=== PATIENT | female | born 1935 | race African-American/Black ===

== ENCOUNTER 2016-09-12 05:20 | Day surgery (SDC) | payer OTHER ==
[2016-09-12] MEDS ORDERED: NS 1,000 ML ONE (05:41)
[2016-09-12] MEDS ORDERED: MYLICON DROPS (DOSE) MISC ONE (07:23)
[2016-09-12] MEDS ORDERED: LR 1,000 ML ONE (08:49)
[2016-09-12] MEDS ORDERED: FENTANYL ONE (08:58)
[2016-09-12] MEDS ORDERED: DIPRIVAN 1% ONE (08:59)
[2016-09-12] MEDS ORDERED: XYLOCAINE-MPF 2% ONE (09:27)
[2016-09-12] MEDS ORDERED: ROBINUL ONE (09:27)
[2016-09-12] MEDS ORDERED: EPHEDRINE ONE (09:27)
[2016-09-12 09:53] VITALS: BP 153/71
--- NOTE | 2016-09-18 04:02 | OPERATIVE NOTE ---
PROCEDURE DATE: 09/12/2016 REFERRING PHYSICIAN: Beth Weiss MD INDICATIONS FOR PROCEDURE: 1. Dysphagia. 2. Nausea with vomiting. 3. Unplanned weight loss. PROCEDURE PERFORMED: Esophagogastroduodenoscopy with biopsy. CONSENT: Informed consent was obtained from the patient and her daughter prior to the procedure. The risks, benefits, and alternatives were discussed. MEDICATIONS: The patient received monitored anesthesia care. PERFORMING PHYSICIAN: Bonnie Parmar MD. ASSISTANTS: 1. ST Jose. 2. Bola Ivan RN. 3. Aubrey Griffiths CRNA. 4. Aubrey Edwards MD (Anesthesia). COMPLICATIONS: There were no complications. ESTIMATED BLOOD LOSS: Less than 1 mL. SPECIMENS REMOVED: 1. Duodenal biopsy. 2. Gastric biopsy. FINDINGS: After sedation was achieved, the upper endoscope was inserted to the 2nd portion of the duodenum. The hypopharynx and tubular esophagus appeared normal. The GE junction was at 40 cm. There was greater than 200 mL of retained bilious secretions in the stomach. There was severe erosive gastritis in the antrum, fundus, and body. There were nodular polyps that remain in place, as they were less than 1 cm. The pylorus was inflamed, but patent. There was severe duodenitis in the bulb and the 2nd portion of the duodenum. Biopsies were taken from the duodenal and gastric mucosa. The free standing fluid was aspirated and the lumen was decompressed. The scope was removed without incident. IMPRESSION: 1. Gastric stasis. 2. Severe erosive gastritis. 3. Gastric polyps. 4. Duodenitis. RECOMMENDATIONS: 1. Await gastric biopsy results. 2. Will order a dedicated gastric emptying study to confirm the diagnosis of gastroparesis. 3. Begin Prilosec 40 mg one p.o. daily. 4. We will proceed with colonoscopy as previously scheduled.
--- NOTE | 2016-09-18 04:09 | OPERATIVE NOTE ---
PROCEDURE DATE: 09/12/2016 REFERRING PHYSICIAN: Beth Weiss MD. INDICATION FOR PROCEDURE: 1. Nausea with vomiting. 2. Unplanned weight loss. PROCEDURE PERFORMED: 1. Colonoscopy with polypectomy. 2. Colonoscopy with biopsy. CONSENT: Informed consent was obtained from the patient and her daughter prior to the procedure. The risks, benefits, and alternatives were discussed. MEDICATIONS: The patient received monitored anesthesia care. PERFORMING PHYSICIAN: Bonnie Parmar MD. ASSISTANTS: 1. ST. Jose 2. Bola Ivan RN. 3. Aubrey Griffiths CRNA. 4. Haja Edwards MD (anesthesia). COMPLICATIONS: There were no complications. ESTIMATED BLOOD LOSS: Less than 1 mL. SPECIMENS REMOVED: 1. Cecal polyps x3. 2. Ascending colon polyp x1. 3. Random colon biopsies. 4. Transverse colon polyp x1. 5. Polyps at 50 cm x 2. 6. Polyps at 40 cm x1. CECAL INTUBATION TIME: 15 minutes. WITHDRAWAL TIME: 41 minutes. PREP QUALITY: Fair to poor. FINDINGS: After the EGD was performed, the pediatric colonoscope was inserted to the cecum. The appendiceal orifice and cecal base appeared normal except for the presence of 3 polyps that ranged in size from 5-15 mm. The polyps were removed by snare cautery. The terminal ileum was not intubated due to the amount of fecal residue that was present. Upon withdrawal, there was an ascending colon polyp that was 5-10 mm in size that was removed by snare cautery. The remaining ascending colon mucosa appeared endoscopically normal. Upon further withdrawal into the transverse colon, there was a 5-10 mm, sessile polyp removed by snare cautery. The splenic flexure appeared grossly normal. In the descending colon at 50 cm, there were 2 polyps that ranged in size from 5-15 mm that were removed by snare cautery at 50 cm. At 40 cm, there was a single polyp that ranged in size from 5-10 mm that was removed by snare cautery. At 30 cm, there was a less than 5 mm polyp that was not removed due to the amount of fecal residue. Throughout the entire colon, there was evidence of diverticulosis but no evidence of diverticulitis. In the upper rectum, there were grade 1 internal hemorrhoids. On retroflexed view, there were large external hemorrhoids. It should be noted that on digital exam and on retroflexed view of the scope, there was decreased sphincter tone. The colonoscope prolapsed through the rectum on retroflexed view. The scope was reinserted and the lumen was decompressed. The scope was removed without incident. IMPRESSION: 1. Multiple colon polyps. 2. Boyce-diverticulosis. 3. Internal hemorrhoids. 4. External hemorrhoids. 5. Decreased sphincter tone. RECOMMENDATION: 1. Await biopsy results. 2. The exam findings today, although abnormal, they do not account for the patient's ongoing weight loss. Therefore, I will schedule the patient for a CT scan of the abdomen and pelvis. She should also have a mammogram and a RN ACUTE DIALYSIS evaluation if not already done. 3. Given the patient's age, I would only recommend a colonoscopy in 3 years if clinically appropriate. After age 84, it may not be clinically indicated to pursue recurrent endoscopies. 4. We will have the patient return to clinic in 4 weeks to assess interval progress.
== END 2016-09-12 09:58 | disposition home or self-care (01) ==
LOC: ENDO 05:20
PROVIDERS: ATTEND Internal Medicine Gastroenterology
DX: K31.84 Gastroparesis (principal); K29.00 Acute gastritis without bleeding; K31.7 Polyp of stomach and duodenum; K29.80 Duodenitis without bleeding; D12.0 Benign neoplasm of cecum; D12.2 Benign neoplasm of ascending colon; D12.3 Benign neoplasm of transverse colon; K63.5 Polyp of colon; E11.9 Type 2 diabetes mellitus without complications; E78.00 Pure hypercholesterolemia, unspecified; I10 Essential (primary) hypertension; M81.0 Age-related osteoporosis without current pathological fracture; Z87.891 Personal history of nicotine dependence; Z23 Encounter for immunization
CPT/HCPCS: 82948; 88305; 88312; 88313; J3010; J7030; J7120

== ENCOUNTER 2019-06-10 16:59 | Inpatient (IN) ==
[2019-06-10 17:55] LABS: BASO# 0.05 X1000 (0.0-0.2); BASO% 0.6 % (0.0-0.8); EOS# 0.37 X1000 (0.0-0.7); EOS% 4.2 % (0.0-10.0); HEMATOCRIT 41.7 % (37.0-47.0); HEMOGLOBIN 13.2 g/dL (12.0-16.0); IMM GRAN# 0.02 X1000 (0.0-0.04); IMM GRAN% 0.2 % (0.0-0.5); LYMPH# 2.25 X1000 (1.2-3.4); LYMPH% 25.8 % (20.5-51.1); MCH 28.6 PG (27-31); MCHC 31.7 g/dL (33-37); MCV 90.5 FL (81-99); MONO# 0.72 X1000 (0.11-0.59); MONO% 8.3 % (1.7-9.3); MPV 11.1 FL (7.4-10.4); NEUT# 5.31 X1000 (1.4-6.5); NEUT% 60.9 % (42.2-75.2); PLT 232 X1000 (130-400); RBC 4.61 XMIL (4.2-5.4); RDW 13.1 % (11.5-14.5); WBC 8.72 X1000 (4.8-10.8)
[2019-06-10 18:20] LABS: ALBUMIN 4.8 g/dL (3.5-5.0); POTASSIUM 4.2 mmol/L (3.5-5.1); TOTAL BILIRUBIN 0.4 mg/dL (0.20-1.00); TOTAL PROTEIN 7.8 g/dL (6.3-8.3)
--- NOTE | 2019-06-10 18:49 | PROVIDER DOCUMENTATION ---
HPI-General Adult - General Chief Complaint: Abnormal Lab[s] Stated Complaint: ABNORMAL LABS Time Seen by Provider: 06/10/19 17:36 Source: patient Unable to obtain history due to:: urgency Allergies/Adverse Reactions: Patient Allergies Allergy/AdvReac Type Severity Reaction Status Date / Time No Known Allergies Allergy Verified 12/19/17 13:13 Home Medications: Home Medication List Medication Instructions Recorded Confirmed Last Taken Type Diltiazem HCl [Diltiazem 24Hr ER 360 mg PO DAILY 10/19/13 06/10/19 12/24/17 07:00 History (Cd)] 360 Lovastatin 20 mg PO HS 10/19/13 06/10/19 12/24/17 21:00 History 20 Metformin [Glucophage] 1,000 mg PO BID CC 10/19/13 06/10/19 12/25/17 07:00 History 1000 Sitagliptin Phosphate [Januvia] 100 mg PO DAILY 10/19/13 06/10/19 12/25/17 07:00 History 100 Lisinopril/Hydrochlorothiazide 1 each PO DAILY #30 tablet 08/16/15 06/10/19 12/24/17 07:00 Rx [Lisinopril-Hctz 20-25 mg Tab] 1 - History of Present Illness -Gen Adult Nature of Presenting Problems: patient was sent to ER because outpatient test result showed high potassium, patient was otherwise asymptomatic, denied taking any supplement Location of Pain/Injury: reports: none Pain Radiation: reports: no radiation Quality of Pain: reports: none Severity: reports: moderate Onset/Duration: reports: unsure Context/Activities at Onset: reports: none Modifying Factors: improves with: nothing Associated Symptoms: reports: denies symptoms Similar Symptoms Previously?: No Recently seen or treated by another doctor?: Yes Review of Systems - Adult - REVIEW OF SYSTEMS - ADULT Constitutional: reports: no symptoms reported. denies: fever, fatique Eyes: reports: no symptoms reported Ears, Nose, Mouth & Throat: reports: no symptoms reported Cardiovascular: reports: no symptoms reported Respiratory: reports: no symptoms reported Gastrointestinal: reports: no symptoms reported Genitourinary: reports: no symptoms reported Musculoskeletal: reports: no symptoms reported Integumentary: reports: no symptoms reported Neurological: reports: no symptoms reported Psychiatric: reports: no symptoms reported Endocrine: reports: no symptoms reported Hematologic/Lymphatic: reports: no symptoms reported Allergic/Immunologic: reports: no symptoms reported Past History - Adult - PAST MEDICAL HISTORY-ADULT Review of Records: reports: Nursing Assessment Review Major Childhood Illnesses: reports: denies history Cardiovascular: reports: HTN, hyperlipidemia Respiratory: reports: denies history Gastrointestinal: reports: GERD Obstetrical/Gynecological: reports: denies history Genitourinary: reports: denies history Musculoskeletal: reports: arthritis Neurological: reports: denies history Endocrine/Immune: reports: Diabetes, thyroid disorder Other Conditions: reports: denies history - PRIOR SURGERIES/PROCEDURES Surgical/Procedure History: reports: hysterectomy, other (thyroidectomy) - IMMUNIZATION STATUS Childhood Immunizations: See Nurse Assessment Flu Vaccine: See Nurse Assessment - FAMILY HISTORY Family History: reviewed, not pertinent Physical Exam-General - PHYSICAL EXAM-ADULT Initial Vital Signs Reviewed: Yes - CONSTITUTIONAL General Appearance: alert, no apparent distress - EYES Eyes: PERRL/EOMI - HEAD, EARS, NOSE, MOUTH & THROAT HENMT: normocephalic/atraumatic, moist mucous membranes - NECK Neck: non-tender, supple - RESPIRATORY Respiratory: lungs clear, normal breath sounds - CARDIOVASCULAR Cardiovascular: regular rate, rhythm, no edema, no gallop, no JVD - GASTROINTESTINAL (ABDOMEN) Abdominal Exam: non tender, soft - LYMPHATIC Lymphatic: no adenopathy - MUSCULOSKELETAL Back Exam: no CVA tenderness, no vertebral tenderness - SKIN Integumentary: normal color, warm/dry - NEUROLOGIC Neurologic: grossly normal, no motor/sensory deficits - PSYCHIATRIC Psych/Mental Status: normal mood/affect Progress - PLAN OF CARE/RESULTS Progress/Plan/Lab Results: Vital Signs - 8 hr 06/10/19 17:10 06/10/19 18:20 Temperature 98.5 F Pulse Rate 83 90 Respiratory Rate 20 20 Blood Pressure 212/107 169/102 O2 Sat by Pulse Oximetry 97 96 Laboratory Results - last 24 hr 06/10/19 06/10/19 17:40 17:40 WBC 8.72 RBC 4.61 Hgb 13.2 Hct 41.7 MCV 90.5 MCH 28.6 MCHC 31.7 L RDW Std Deviation 13.1 Plt Count 232 MPV 11.1 H Immature Gran % (Auto) 0.2 Neut % (Auto) 60.9 Lymph % (Auto) 25.8 Schuyler % (Auto) 8.3 Eos % (Auto) 4.2 Baso % (Auto) 0.6 Immature Gran # (Auto) 0.02 Neut # (Auto) 5.31 Lymph # (Auto) 2.25 Schuyler # (Auto) 0.72 H Eos # (Auto) 0.37 Baso # (Auto) 0.05 Sodium 141 Potassium 4.2 Chloride 105 Carbon Dioxide 23 L Anion Gap 13 BUN 23 H Creatinine 1.0 H Estimated GFR/1.73 m2 53 BUN/Creatinine Ratio 23 Glucose 169 H Calculated Osmolality 289 Calcium 12.0 H Total Bilirubin 0.40 AST 20 ALT 9 L Alkaline Phosphatase 85 Total Protein 7.8 Albumin 4.8 Globulin 3.0 Albumin/Globulin Ratio 2.0 Orders Category Date Time Status CBC WITH DIFF [HEME] Stat Lab 06/10/19 17:40 Completed COMPREHENSIVE METABOLIC PANEL [CHEM] Stat Lab 06/10/19 17:40 Completed Result Diagrams: 06/12/19 05:30 06/12/19 05:30 Departure - Departure Date of Disposition Decision: 06/10/19 Time of Disposition Decision: 18:49 DIAGNOSIS: Hypercalcemia Disposition: ADMITTED INPATIENT 09 Certified Medical Emergency: Emergent Condition: Stable - Critical Care Note This patient required my direct & personal management of CC.: No Attestation - Physician/ FIOR Attestation Patient care was provided by Advanced Practice Provider:: No The physician spent face to face time with patient:: Yes Advanced Practice Provider documentation review:: Supervising physician onsite and consulted in the evaluation and care of this patient. The physician did have a face to face encounter with the patient.
[2019-06-10] MEDS ORDERED: NS 1,000 ML IV ONE (18:58)
[2019-06-10] MEDS ORDERED: AREDIA 90 MG in NS 1,000 ML IV ONE (19:00)
[2019-06-10] MEDS ORDERED: NS 1,000 ML IV SCH (19:00)
[2019-06-10] MEDS: MIACALCIN SUBQ SCH (20:19)
[2019-06-10] MEDS: MEVACOR PO SCH (21:55)
[2019-06-10 22:53] LABS: BILIRUBIN URINE NEGATIVE (NEGATIVE); BLOOD URINE NEGATIVE (NEGATIVE); CLARITY CLEAR (CLEAR); KETONE URINE NEGATIVE (NEGATIVE); LEUKOCYTES URINE NEGATIVE (NEGATIVE); NITRITE URINE NEGATIVE (NEGATIVE); PH URINE 6.5; PROTEIN URINE NEGATIVE (NEGATIVE); UROBILINOGEN URINE NORMAL
[2019-06-10 23:15] LABS: URINE BACTERIA 1+ /HFP; URINE EPITHELIAL CELLS <10 /HPF (<10)
[2019-06-10 23:16] LABS: COLOR STRAW; URINE RBC <10 /HPF (<10); URINE SOURCE CLEAN CATCH; URINE WBC <10 /HPF (<10)
[2019-06-11] MEDS: NS 1,000 ML IV SCH ×2 (01:52→14:07)
[2019-06-11 06:36] LABS: AGAP 9; ALBUMIN 3.8 g/dL (3.5-5.0); BUN 15 mg/dL (8-22); CALCIUM 10.4 mg/dL (8.8-10.2); CHLORIDE 110 mmol/L (98-107); COSMO 284; CREATININE 0.8 mg/dL (0.5-0.9); ESTIMATED GFR > 60; GLUCOSE 166 mg/dL (70-104); PHOSPHORUS 2.3 mg/dL (2.7-4.5); POTASSIUM 3.8 mmol/L (3.5-5.1); SODIUM 140 mmol/L (136-145); TCO2 22 mmol/L (25-35)
[2019-06-11] MEDS: MIACALCIN SUBQ SCH (06:53)
--- NOTE | 2019-06-11 08:45 | Diag Imaging Result Doc PS360 ---
EXAM: SKELETAL SURVEY (ADULT) HISTORY: r/o multiple myeloma TECHNIQUE: Skeletal survey protocol. COMPARISON: None. FINDINGS: Single view chest: There is cardiomegaly. Mildly prominent interstitial markings. Degenerative changes about the shoulders. No identifiable bony lesions. Thoracic spine two views: There is a scoliosis and degenerative arthropathy. No compression fractures. Lumbar spine two views: There is a rotoscoliosis and degenerative arthropathy. There is osteopenia. No compression fractures. Cervical spine two views: There is degenerative arthropathy. There is carotid artery calcification. No compression fracture. No subluxation. Skull single view: No lytic or blastic lesions are appreciated. Single view pelvis: No lytic nor blastic lesions are appreciated. Pelvic calcification is most consistent with a uterine fibroid. Mild diffuse degenerative changes are noted. Single view abdomen: Cholecystectomy clips. Nonobstructive bowel gas pattern. Bilateral femurs single views: Mild nonspecific, symmetrical medullary lucencies bilateral proximal diaphyses probably represent patchy osteopenia. No discrete focal or punched out lytic lesions are identified. 1.6 cm calcification projects over the mid distal left femur. Bilateral tib-fib single views: Mild degenerative change. No lytic or blastic lesions. Bilateral humeri: No discrete punched out lytic or blastic lesions. Moderate degenerative arthropathy bilateral shoulders. Bilateral forearms single views: No focal lytic or blastic lesion. IMPRESSION: 1.No focal lytic or blastic lesions are identified. 2.Marked degenerative arthropathy and scoliosis of the cervical, thoracic, and lumbar spine. Electronically signed by Мария Langston 06/11/2019 8:42 AM
[2019-06-11] MEDS: JANUVIA PO SCH (10:12)
[2019-06-11] MEDS: PRINIVIL PO SCH (10:12)
[2019-06-11] MEDS: CARDIZEM CD PO SCH (10:12)
[2019-06-11] MEDS: HYDROCHLOROTHIAZIDE PO SCH (10:12)
[2019-06-11] MEDS ORDERED: ZOFRAN IV PRN (10:42)
[2019-06-11] MEDS ORDERED: TYLENOL PO PRN (10:42)
--- NOTE | 2019-06-11 15:49 | Diag Imaging Result Doc PS360 ---
EXAM: US SOFT TISSUE HEAD/NECK HISTORY: parathyroid ultrasound; >Ca >PTH TECHNIQUE: Thyroid ultrasound COMPARISON: None. FINDINGS: The right lobe of the thyroid measures 3.8 x 1.3 x 1.8 cm. The left lobe of the thyroid measures 4.4 x 1.3 x 1.4 cm. There is a 9 mm hypoechoic nodule inferiorly in the right lobe. Tiny cyst superiorly in the right lung. There is a 1.7 cm hypoechoic nodule with in or adjacent to the posterior left mid lobe. Adjacent to this is a 6 mm cyst in the lower left lobe. IMPRESSION: 1.7 cm left-sided nodule within or adjacent to the mid left lobe Electronically signed by Juan Jose Fallon 06/11/2019 3:46 PM
--- NOTE | 2019-06-11 20:19 | HISTORY AND PHYSICAL ---
PRIMARY CARE PROVIDER: Beth Weiss MD. CHIEF COMPLAINT: Came in because her doctor told her that her calcium was high. HISTORY OF PRESENT ILLNESS: Ms. Yvonne Parmar is an 84-year-old female, with a medical history of osteoporosis, diabetes, hypertension, hyperlipidemia, who states that she went to her primary care provider on the , this past Sunday, for a doctor's appointment, routine check. They called her yesterday and told her to go to the emergency department because her calcium levels were too high. Otherwise, she only complains of having some weight loss and more or less that her "right hip is gone", is what she keeps saying. She just cannot really walk straight or provide a lot of pressure on it, but otherwise no other complaints. She had some lab work which revealed that her calcium level was indeed elevated at 12. She also had elevation in her PTH which is 107, and a decrease in her phosphorus which is 2.3. All 3 of these are consistent with hyperparathyroidism. Now, she does admit to having some sort of possible thyroid surgery or parathyroid surgery. She is really unclear, and we cannot really find any old records on it, so we are going to get an ultrasound of her thyroid and parathyroid. PAST MEDICAL HISTORY: 1. Diabetes mellitus type 2. 2. Hypertension. 3. Hyperlipidemia. 4. Osteoporosis. She gets shots for that, some sort of medication shot. 5. History of gastritis and duodenitis. 6. History of bladder prolapse with sling. SURGICAL HISTORY: 1. Hysterectomy. 2. Some sort of thyroid or parathyroid surgery in 2001. She is not on any medications for replacement, and she is really unclear what kind of surgery it was, or why she even had the surgery. 3. Umbilical hernia repair with lysis of adhesions. 4. Cholecystectomy. 5. EGD with biopsy and colonoscopy in 2017. 6. Bladder sling, secondary to bladder prolapse in 2018. SOCIAL HISTORY: She quit smoking in the 1980s, but she had started when she was in her teens and she said it was at least less than a half pack per day, or even less than that. Denies alcohol or illicit drug use. She lives at home alone. FAMILY HISTORY: She does not know of any medical conditions in her mother, and her father had diabetes. ALLERGIES: No known drug allergies. HOME MEDICATIONS: 1. Diltiazem 360 mg p.o. daily. 2. Metformin 1000 mg p.o. twice daily. 3. Januvia 100 mg p.o. daily. 4. Lovastatin 20 mg p.o. nightly. 5. Lisinopril/hydrochlorothiazide 1 tablet p.o. daily. REVIEW OF SYSTEMS: A 14 point review of systems is complete and all are negative except those mentioned above in HPI. PHYSICAL EXAMINATION: VITAL SIGNS: Temperature 98.2 degrees, heart rate 55, respiratory rate 16, blood pressure 139/66, O2 saturation 97% on room air. GENERAL: Ms. Yvonne Parmar is an 84-year-old female. She is in no acute distress. She is able to answer questions appropriately. HEENT: Atraumatic, normocephalic. Pupils equal, round, and reactive to light. Extraocular movements intact. Mucous membranes are moist. NECK: Trachea midline. CARDIOVASCULAR: S1, S2. Regular rate and rhythm. No rubs, gallops, murmurs. No lower extremity edema. +2 dorsalis and radial pulses. Negative JVD or carotid bruits. PULMONARY: Clear to auscultate with bilateral breath sounds. No accessory muscle use or work of breathing noted. GI: Soft, nontender, nondistended. Positive bowel sounds x4. EXTREMITIES: Decreased range of motion. Strength equal in all extremities. NEUROLOGIC: Alert and oriented x3. Follows commands. Sensory is intact. SKIN: Warm, dry, intact. LABORATORY DATA: Blood cells 8000, hemoglobin 13, hematocrit 41, platelet count 232,000. Sodium 140, potassium 3.8, BUN 15, creatinine 0.8, glucose 166. Calcium on admit was 12 and now down to 10.4. Phosphorus is 2.3. PTH is 107. Bilirubin 0.40, AST 20, ALT 9, albumin 3.8. Urinalysis negative. It did have some trace glucose in it. IMAGING: Looks like a skeletal survey to rule out multiple myeloma. On the skeletal survey of the single-view chest, there is cardiomegaly, mildly prominent interstitial markings, degenerative changes around the shoulders, but no lesions. The thoracic spine 2 views showed scoliosis and degenerative arthropathy. No fractures. Lumbar spine 2 views showed a rotoscoliosis and degenerative arthropathy. There is osteopenia, but no fractures. Cervical spine 2 views showed degenerative arthropathy. There was some carotid artery calcification, but no fractures or subluxation. The skull single view showed no lytic or blastic lesions. The single view pelvis showed no lytic or blastic lesion. There is a pelvic calcification that is consistent with uterine fibroid and mild diffuse degenerative changes. The single-view abdomen: There are cholecystectomy clips, but nonobstructive bowel gas pattern. The bilateral femora single-view showed osteopenia, and then there was a 1.6 cm calcification over the mid distal left femur. Bilateral tib-fib single views showed degenerative changes. No lesions in the bilateral humeri. No lytic or blastic lesions. It did show moderate degenerative arthropathy. The bilateral forearm single-view showed no lytic lesions. ASSESSMENT AND PLAN: 1. Hyperparathyroidism, likely primary. We are getting an ultrasound of the parathyroid and thyroid as well, but her calcium level and PTH level are both high. The phosphorus level is low. She received pamidronate 90 mg intravenously, and that got her calcium level back down. 2. Hypertension. Continue with hydrochlorothiazide/lisinopril. 3. Diabetes mellitus type 2. Continue Januvia. 4. Hyperlipidemia. Continue lovastatin. 5. Dehydration. Continue with normal saline fluid. 6. Osteoporosis. She actually takes a medication that she takes shots for. It affects her right hip more which is where she has most of her issues, as far as bearing weight. Not sure what the name of the medication is. Dictated by ALEXANDRU Lui for Chago House MD Addendum: Patient seen and examined by myself. Agree with ALEXANDRU note. It reflects my assessment and plan. Patient is being admitted to hospital for hypercalcemia that is not symptomatic. Will start IV fluids, will provide Pamidronate and myacalcin and will order PTH, SPEP and will follow results. cc: ALEXANDRU Lui MD [facility]OSPITALGalina
[2019-06-11] MEDS: MEVACOR PO SCH (20:29)
[2019-06-12] MEDS: NS 1,000 ML IV SCH ×3 (03:31→09:13)
[2019-06-12] MEDS ORDERED: TYLENOL PO PRN (06:30)
[2019-06-12 07:32] LABS: AGAP 12; ALBUMIN 3.5 g/dL (3.5-5.0); ALKALINE PHOSPHATASE 59 U/L (32-104); BUN 18 mg/dL (8-22); CALCIUM 10.2 mg/dL (8.8-10.2); CHLORIDE 112 mmol/L (98-107); COSMO 288; CREATININE 0.9 mg/dL (0.5-0.9); GLUCOSE 180 mg/dL (70-104); GOT 19 U/L (10-30); POTASSIUM 4.1 mmol/L (3.5-5.1); SODIUM 141 mmol/L (136-145); TCO2 18 mmol/L (25-35); TOTAL PROTEIN 6.5 g/dL (6.3-8.3)
[2019-06-12 07:33] LABS: GPT 8 U/L (10-36); MAGNESIUM 1.8 mg/dL (1.5-2.7); PHOSPHORUS 2.2 mg/dL (2.7-4.5)
[2019-06-12 07:36] VITALS: BP 157/67
[2019-06-12 08:03] LABS: HEMATOCRIT 38.6 % (37.0-47.0); HEMOGLOBIN 11.7 g/dL (12.0-16.0); MCH 29.4 PG (27-31); MCHC 30.3 g/dL (33-37); PLT 191 X1000 (130-400); RBC 3.98 XMIL (4.2-5.4); RDW 13.4 % (11.5-14.5); WBC 10.17 X1000 (4.8-10.8)
[2019-06-12 08:05] LABS: EOS# 0.23 X1000 (0.0-0.7); EOS% 2.3 % (0.0-10.0); LYMPH# 2.22 X1000 (1.2-3.4); LYMPH% 21.8 % (20.5-51.1); MONO# 0.87 X1000 (0.11-0.59); MONO% 8.6 % (1.7-9.3); NEUT# 6.72 X1000 (1.4-6.5)
[2019-06-12] MEDS: CARDIZEM CD PO SCH (09:05)
[2019-06-12] MEDS: PRINIVIL PO SCH (09:06)
[2019-06-12] MEDS: JANUVIA PO SCH (09:06)
[2019-06-12] MEDS: HYDROCHLOROTHIAZIDE PO SCH (09:06)
--- NOTE | 2019-06-14 15:49 | DISCHARGE SUMMARY ---
ADMISSION DATE: 06/11/2019 DISCHARGE DATE: 06/12/2019 ADMISSION AND DISCHARGE DIAGNOSES: 1. Hyperparathyroidism, likely primary. 2. Hypertension. 3. Diabetes mellitus type 2. 4. Hyperlipidemia. 5. Dehydration. 6. Osteoporosis. CONSULTATIONS: None. SURGERIES OR PROCEDURES: None. HOSPITAL COURSE: Ms Yvonne Parmar, an 84-year-old female, presented to the hospital as a patient from Dr. Beth Weiss's office. Apparently, she had seen her primary the Sunday before presentation, who then called her on day of admission to come to the emergency department because her calcium was too high. Otherwise, she had no other complaints. She did state she had some weight loss and that she feels like her right hip is gone; not walking real straight with that right hip. Her calcium level indeed was elevated at 12, and elevation of the PTH was 107. There was decrease in phosphorus at 2.3. All 3 of those were consistent with hyperparathyroidism. She did admit to having some sort of thyroid or parathyroid surgery. She kept pointing to the area stating that she had surgery on that. It was really unclear and there were no old records for that, but ultrasound was ordered, which showed on the left lobe of the thyroid there was a 9 mm hypoechoic nodule inferiorly in the right lobe. There is a tiny cyst superiorly to the right lung. There is a 1.7 cm hypoechoic nodule and/or adjacent to the posterior left mid lobe, and adjacent to this is a 6 mm cyst in the left lower lobe. These are the lobes of the parathyroid. So, she has cysts on her parathyroid, which is likely the cause. She is more stable. Her calcium levels came down. She is going to be discharged home. DISCHARGE VITAL SIGNS: Temperature 97.8 degrees, heart rate 57, respiratory rate 18, blood pressure 157/67, O2 saturation 99% on room air. DISCHARGE LAB DATA: White blood cells 10,000, hemoglobin 11, hematocrit 38, platelet count 191. Sodium 141, potassium 4.1. BUN 18, creatinine 0.9, glucose 180, calcium was 10.2, phosphorus was 2.2, magnesium was 1.8 bilirubin 0.60. AST 19, ALT 8. Had protein electrophoresis performed. The interpretation was a normal study. Urine protein 24 hour shows there is no monoclonal band. IMAGING: Skeletal survey: No focal lytic or blastic lesions identified. There is marked degenerative arthropathy and scoliosis in the cervical, thoracic and lumbar spine. On the ultrasound of the parathyroid, there is a 1.7 cm hypoechoic nodule within or adjacent to the posterior left mid lobe, and there was also a 6 mm cyst in the lower left lobe. She has sinus bradycardia on telemetry. DISCHARGE MEDICATIONS: She is being discharged on all of her home medications: 1. Diltiazem 360 mg p.o. daily. 2. Metformin 1000 mg p.o. twice daily. 3. Januvia 100 mg p.o. daily. 4. Lovastatin 20 mg p.o. nightly. 5. Lisinopril/hydrochlorothiazide 1 tablet p.o. daily. PHYSICIAN FOLLOWUP: Dr. Beth Weiss. DISCHARGE DIET: Heart healthy. DISCHARGE ACTIVITY: As tolerated. DISCHARGE INSTRUCTIONS: If your condition changes, contact physician and/or return to the emergency department. Changes may include, but are not limited to shortness of breath, increased fatigue, excessive bleeding, unexplained weight loss or gain, unmanageable pain, signs or symptoms of infection. Call Dr. Weiss and make an appointment to follow up in a week. Office closed when trying to make an appointment. Resume home medications. Take all medications as prescribed. Call office with any questions or concerns. Come to the emergency department if your symptoms do not improve or become worse. DISCHARGE DISPOSITION: Home. Dictated by ALEXANDRU Lui for [facility]ago House MD Addendum: Patient seen and examined by myself. Agree with ALEXANDRU note. It reflects my assessment and plan. Patient is being discharged in stable condition. Follow up with PCP in a week. cc: ALEXANDRU Lui MD [facility]
== END 2019-06-12 12:55 | disposition home or self-care (01) | DRG 645 ==
LOC: P.ED 16:59 → P.MEDSURG 20:10
PROVIDERS: ATTEND Internal Medicine

== ENCOUNTER 2019-08-01 18:30 | Inpatient (IN) ==
[2019-08-01] MEDS ORDERED: NS 1,000 ML IV ONE ×2 (18:52→23:14)
[2019-08-01] MEDS ORDERED: SODIUM CHLORIDE 0.9% INJ ONE (18:54)
[2019-08-01] MEDS ORDERED: PROTONIX IV ONE (18:54)
[2019-08-01 19:04] LABS: BASO# 0.05 X1000 (0.0-0.2); BASO% 0.3 % (0.0-0.8); EOS# 0.23 X1000 (0.0-0.7); EOS% 1.3 % (0.0-10.0); HEMATOCRIT 33.9 % (37.0-47.0); HEMOGLOBIN 10.5 g/dL (12.0-16.0); IMM GRAN# 0.07 X1000 (0.0-0.04); IMM GRAN% 0.4 % (0.0-0.5); LYMPH# 2.43 X1000 (1.2-3.4); LYMPH% 13.6 % (20.5-51.1); MCH 28.2 PG (27-31); MCV 91.1 FL (81-99); MONO# 0.78 X1000 (0.11-0.59); MONO% 4.4 % (1.7-9.3); PLT 221 X1000 (130-400); RBC 3.72 XMIL (4.2-5.4); RDW 13.1 % (11.5-14.5); WBC 17.86 X1000 (4.8-10.8)
--- NOTE | 2019-08-01 19:06 | PROVIDER DOCUMENTATION ---
This chart was entered by Tati Mclean Scribe, acting as scribe for Henri Knight MD. HPI-Abdominal Pain/GI Problem - General Source: patient - History of Present Illness-ABD Nature of Presenting Problems: pt is a 84 yr old female presenting with complaint of weakness, low blood pressure and passing blood, pt reports onset approx 1230 today, 3-5 bloody bowel movements today. pt denies any other complaints Onset/Duration: reports: this afternoon (1230) Timing: reports: still present Activities at Onset: reports: other (def) Exposure to sick contacts?: No Modifying Factors: improves with: nothing Associated Symptoms: reports: diarrhea, weakness, other (bloody stools) Dark Stools Present?: reports: bright red blood Rectal Bleeding: reports: bleeding without stool Rectal Pain: reports: none Emesis Description: reports: none Bruising or Bleeding Gums?: No Similar Symptoms Previously?: No Recently seen or treated by another doctor?: No <Henri Knight - Last Filed: 08/01/19 20:37> <Maxi Melgar - Last Filed: 08/01/19 20:43> - General Chief Complaint: Weakness Stated Complaint: WEAKNESS Time Seen by Provider: 08/01/19 18:50 Allergies/Adverse Reactions: Patient Allergies Allergy/AdvReac Type Severity Reaction Status Date / Time No Known Allergies Allergy Verified 12/19/17 13:13 Home Medications: Home Medication List Medication Instructions Recorded Confirmed Last Taken Type Diltiazem HCl [Diltiazem 24Hr ER 360 mg PO DAILY 10/19/13 08/01/19 08/01/19 History (Cd)] Lovastatin 20 mg PO HS 10/19/13 08/01/19 08/01/19 History Metformin [Glucophage] 1,000 mg PO BID CC 10/19/13 08/01/19 08/01/19 History Sitagliptin Phosphate [Januvia] 100 mg PO DAILY 10/19/13 08/01/19 08/01/19 History Lisinopril/Hydrochlorothiazide 1 each PO DAILY #30 tablet 08/16/15 08/01/19 08/01/19 Rx [Lisinopril-Hctz 20-25 mg Tab] Review of Systems - Adult - REVIEW OF SYSTEMS - ADULT Constitutional: reports: fatique Eyes: denies: blurred vision, double vision Ears, Nose, Mouth & Throat: reports: no symptoms reported Cardiovascular: denies: chest pain, palpitations, syncope Respiratory: denies: cough, shortness of breath Gastrointestinal: reports: abdominal pain, diarrhea, rectal bleeding Genitourinary: denies: dysuria, frequency, flank pain Musculoskeletal: denies: muscle aches, muscle weakness Integumentary: reports: no symptoms reported Neurological: denies: dizziness/vertigo, headache/migraines Psychiatric: reports: no symptoms reported Endocrine: reports: no symptoms reported Hematologic/Lymphatic: reports: no symptoms reported Allergic/Immunologic: reports: no symptoms reported All Other Systems: Reviewed and Negative <Henri Knight - Last Filed: 08/01/19 20:37> Past History - Adult - PAST MEDICAL HISTORY-ADULT Review of Records: reports: Old Records Reviewed, Nursing Assessment Review, Medications Reviewed, Social history reviewed & non-contributory. Major Childhood Illnesses: reports: denies history Cardiovascular: reports: HTN, hyperlipidemia Respiratory: reports: denies history Gastrointestinal: reports: GERD Obstetrical/Gynecological: reports: denies history Genitourinary: reports: denies history Musculoskeletal: reports: arthritis Neurological: reports: denies history Endocrine/Immune: reports: Diabetes, thyroid disorder Other Conditions: reports: denies history - PRIOR SURGERIES/PROCEDURES Surgical/Procedure History: reports: hysterectomy, other (thyroidectomy) - IMMUNIZATION STATUS Childhood Immunizations: See Nurse Assessment Flu Vaccine: See Nurse Assessment - FAMILY HISTORY Family History: reviewed, not pertinent - SOCIAL HISTORY Living Situation: family <Henri Knight - Last Filed: 08/01/19 20:37> Physical Exam-General - PHYSICAL EXAM-ADULT Initial Vital Signs Reviewed: Yes - CONSTITUTIONAL General Appearance: alert, no apparent distress, obese - EYES Eyes: PERRL/EOMI - HEAD, EARS, NOSE, MOUTH & THROAT HENMT: normocephalic/atraumatic, moist mucous membranes, normal ENT inspection - NECK Neck: non-tender, full range of motion, supple, normal inspection - RESPIRATORY Respiratory: chest non-tender, lungs clear, normal breath sounds - CARDIOVASCULAR Cardiovascular: normal peripheral pulses, regular rate, rhythm, no edema - GASTROINTESTINAL (ABDOMEN) Abdominal Exam: normal bowel sounds, soft, tenderness (low abdominal) - LYMPHATIC Lymphatic: no adenopathy - MUSCULOSKELETAL Back Exam: normal inspection, no CVA tenderness, no vertebral tenderness Extremity: normal range of motion, non-tender, normal gait, normal inspection - SKIN Integumentary: normal color, normal turgor, warm/dry - NEUROLOGIC Neurologic: grossly normal, no motor/sensory deficits - PSYCHIATRIC Psych/Mental Status: normal mood/affect, normal thought content, normal thought process, oriented x 3 <Henri Knight - Last Filed: 08/01/19 20:37> Progress - PLAN OF CARE/RESULTS Progress/Plan/Lab Results: Vital Signs - 8 hr 08/01/19 18:14 Temperature 98 F Pulse Rate 73 Respiratory Rate 20 Blood Pressure 77/52 O2 Sat by Pulse Oximetry 100 Orders Category Date Time Status COMPREHENSIVE METABOLIC PANEL [CHEM] Stat Lab 08/01/19 18:51 Uncollected PRBC [LRPC (RED CELLS)] [BBK] Stat Lab 08/01/19 18:52 Ordered TYPE & SCREEN [BBK] Stat Lab 08/01/19 18:51 Uncollected TYPE & SCREEN [BBK] Stat Lab 08/01/19 18:52 Ordered 0.9% Sodium Chloride Inj [Ns] 1,000 ml Med 08/01/19 18:52 Active IV 999 mls/hr Result Diagrams: 08/01/19 18:45 08/01/19 18:45 - EKG 1 Time of EKG reading by physician:: 18:54 EKG Read and Signed by:: Henri Knight EKG Interpretation (*Must complete 3 of following elements*): Abnormal (non specific ST abnormality) Rate: 75 Rhythm: nsr [place]: normal QRS: normal - CONSULTS/PCP/HOSPITALIST Notification #1 *Consult/PCP/Hospitalist*: Dr Carver Time Discussed: 20:30 Reason/Comments: discusses plan of care Consult Disposition: other (admit to [facility]) - CHANGE OF SHIFT REPORT (ED Provider) 1 Report Given and Care Transferred to:: Dr Melgar Time of Transfer: 19:00 Items Pending: Labs, XRAY Results, Physician Consult/Arrival <Henri Knight - Last Filed: 08/01/19 20:37> - PLAN OF CARE/RESULTS Progress/Plan/Lab Results: Vital Signs - 8 hr 08/01/19 18:14 Temperature 98 F Pulse Rate 73 Respiratory Rate 20 Blood Pressure 77/52 O2 Sat by Pulse Oximetry 100 Laboratory Results - last 24 hr 08/01/19 08/01/19 08/01/19 18:45 18:45 18:45 WBC 17.86 H RBC 3.72 L Hgb 10.5 L Hct 33.9 L MCV 91.1 MCH 28.2 MCHC 31.0 L RDW Std Deviation 13.1 Plt Count 221 MPV 11.0 H Immature Gran % (Auto) 0.4 Neut % (Auto) 80.0 H Lymph % (Auto) 13.6 L [place] % (Auto) 4.4 Eos % (Auto) 1.3 Baso % (Auto) 0.3 Immature Gran # (Auto) 0.07 H Neut # (Auto) 14.30 H Lymph # (Auto) 2.43 [place] # (Auto) 0.78 H Eos # (Auto) 0.23 Baso # (Auto) 0.05 PT INR PTT (Actin FS) Sodium 132 L Potassium 4.6 Chloride 100 Carbon Dioxide 23 L Anion Gap 9 BUN 25 H Creatinine 1.2 H Estimated GFR/1.73 m2 43 BUN/Creatinine Ratio 21 Glucose 402 H* POC Glucose Calculated Osmolality 286 Calcium 10.1 Total Bilirubin 0.40 AST 17 ALT 7 L Alkaline Phosphatase 66 Total Protein 6.4 Albumin 3.9 Globulin 3.0 Albumin/Globulin Ratio 2.0 Blood Type O POSITIVE Blood Type Confirm Antibody Screen NEGATIVE Crossmatch See Detail 08/01/19 08/01/19 08/01/19 18:45 19:01 19:14 WBC RBC Hgb Hct MCV MCH MCHC RDW Std Deviation Plt Count MPV Immature Gran % (Auto) Neut % (Auto) Lymph % (Auto) [place] % (Auto) Eos % (Auto) Baso % (Auto) Immature Gran # (Auto) Neut # (Auto) Lymph # (Auto) [place] # (Auto) Eos # (Auto) Baso # (Auto) PT 13.7 INR 1.00 PTT (Actin FS) < 20.0 L Sodium Potassium Chloride Carbon Dioxide Anion Gap BUN Creatinine Estimated GFR/1.73 m2 BUN/Creatinine Ratio Glucose POC Glucose 378 H Calculated Osmolality Calcium Total Bilirubin AST ALT Alkaline Phosphatase Total Protein Albumin Globulin Albumin/Globulin Ratio Blood Type Blood Type Confirm O POSITIVE Antibody Screen Crossmatch Orders Category Date Time Status CBC WITH ELECTRONIC DIFF [HEME] Stat Lab 08/01/19 18:45 Completed COMPREHENSIVE METABOLIC PANEL [CHEM] Stat Lab 08/01/19 18:45 Completed PRBC [LRPC (RED CELLS)] [BBK] Stat Lab 08/01/19 18:45 Results PROTIME WITH INR [COAG] Stat Lab 08/01/19 18:45 Completed PTT [COAG] Stat Lab 08/01/19 18:45 Completed TYPE & SCREEN [BBK] Stat Lab 08/01/19 18:45 Results UA NIMS W/REFLEX CULT [URINALYSIS] Urgent Lab 08/01/19 18:56 Uncollected 0.9% Sodium Chloride Inj [Ns] 1,000 ml Med 08/01/19 20:40 Ordered IV 125 mls/hr 0.9% Sodium Chloride Inj [Ns] 1,000 ml Med 08/01/19 18:52 Discontinued IV 999 mls/hr Insulin Human Regular [Humulin R] Med 08/01/19 20:40 Once 2 unit SUBQ NOW ONE Pantoprazole [Protonix] Med 08/01/19 18:54 Discontinued 40 mg IV NOW ONE Sodium Chloride 0.9% Med 08/01/19 18:54 Discontinued 10 ml INJ NOW ONE EKG [EKG] Stat Ther 08/01/19 18:54 Ordered Result Diagrams: 08/01/19 18:45 08/01/19 18:45 - CONSULTS/PCP/HOSPITALIST Notification Reason/Comments: discusses plan of care, recommends admit to [facility] <Maxi Melgar - Last Filed: 08/01/19 20:43> Departure <Henri Knight - Last Filed: 08/01/19 20:37> <Maxi Melgar - Last Filed: 08/01/19 20:43> - Departure DIAGNOSIS: Acute GI bleeding Referrals and Follow-Ups: None,PCP [Primary Care Provider] - This chart was documented by the indicated scribe, (Tati Mclean Scribe) and accurately reflects the services I performed and decisions made by Antonia seals Bahador Mark, MD, as attested by the provider's signature.
[2019-08-01 19:23] LABS: PROTIME 13.7 Seconds (11.0-16.0)
[2019-08-01 19:29] LABS: PTT < 20.0 Seconds (22.3-41.8)
[2019-08-01 19:40] LABS: ALBUMIN 3.9 g/dL (3.5-5.0); CALCIUM 10.1 mg/dL (8.8-10.2); CREATININE 1.2 mg/dL (0.5-0.9); POTASSIUM 4.6 mmol/L (3.5-5.1); TOTAL BILIRUBIN 0.4 mg/dL (0.20-1.00); TOTAL PROTEIN 6.4 g/dL (6.3-8.3)
[2019-08-01] MEDS ORDERED: HUMULIN R SUBQ ONE (20:40)
[2019-08-01] MEDS ORDERED: ROCEPHIN 1 GM in NS 50 ML IV ONE (20:41)
[2019-08-01] MEDS: NS 1,000 ML IV ONE (21:10)
[2019-08-01 22:05] LABS: URINE SOURCE CATH
[2019-08-01 22:08] LABS: UR EPITHELIAL CELLS <10 /HPF (<10); URINE BACTERIA NEGATIVE /HPF; URINE RBC <10 /HPF (<10); URINE WBC <10 /HPF (<10)
[2019-08-01 22:11] LABS: BILIRUBIN URINE NEGATIVE (NEGATIVE); BLOOD URINE NEGATIVE (NEGATIVE); COLOR YELLOW; GLUCOSE URINE >1000 mg/dL (NEGATIVE); KETONE URINE NEGATIVE (NEGATIVE); LEUKOCYTES URINE NEGATIVE (NEGATIVE); NITRITE URINE NEGATIVE (NEGATIVE); PH URINE 5.5; PROTEIN URINE NEGATIVE (NEGATIVE); SP GRAVITY URINE 1.021; TURBIDITY URINE CLEAR (CLEAR); UROBILINOGEN URINE NORMAL (NORMAL)
--- NOTE | 2019-08-01 22:23 | EKG Report ---
Test Performed on : 08/01/2019 6:54:15 PM Test Reason : blood loss Blood Pressure : / mmHG Vent. Rate : 075 BPM Atrial Rate : 075 BPM P-R Int : 166 ms QRS Dur : 090 ms QT Int : 404 ms P-R-T Axes : 058 -10 086 degrees QTc Int : 451 ms Normal sinus rhythm. Nonspecific ST abnormality Abnormal ECG When compared with ECG of 10-MAR-2019 20:57, No significant change was found Unconfirmed Result
[2019-08-01] MEDS ORDERED: ZOFRAN IV PRN (23:14)
[2019-08-02] MEDS ORDERED: FLU VACCINE IM ONE (00:20)
[2019-08-02] MEDS ORDERED: PNEUMOVAX 23 IM ONE (00:21)
[2019-08-02 01:06] LABS: HEMOGLOBIN A1C 8.1 % (4.8-6.0)
--- NOTE | 2019-08-02 01:14 | HISTORY AND PHYSICAL ---
ADDENDUM: Ms. Yvonne Parmar is an 84-year-old woman with past medical history of hypertension, hyperlipidemia and type 2 diabetes, who came in because of hematochezia with associated left lower quadrant pain. She had 1 episode at home, came to the ER at [place] and had 2 more episodes. She denies any lightheadedness or shortness of breath. No vomiting. No kerri diarrhea prior to this. No fever, no chills. No cardiorespiratory complaints. Lab work showed a white count of 17,000, hemoglobin and hematocrit 10 and 30, platelets 221,000. Hemoglobin has dropped minimally from 11.7 in May of last year. Her BUN is 25, creatinine 1.2, glucose 402. Coagulation studies are normal. Her blood pressure is 130/59, heart rate 94, respiratory rate 18, temperature is 99 degrees. On exam she is mildly pale. Mild left lower quadrant tenderness but no peritoneal signs. Bowel sounds are normal. My suspicion is the patient may have a diverticular bleed versus ischemic colitis. CT scan was ordered. I prefer to do it with contrast, but she appears to be clinically on the dry side. I agree with IV fluid resuscitation. No need for blood products at this time. Empiric antibiotics are started. GI, Dr. Kim has been notified and will see the patient later today. We will put the patient on Lantus and sliding scale. cc: Wayne Lucero MD
[2019-08-02] MEDS: FLAGYL 500 MG/NS 500 MG/100 ML IVPB IV SCH ×5 (01:21→23:18)
[2019-08-02] MEDS: NS 1,000 ML IV ONE (01:21)
[2019-08-02 01:42] LABS: HEMATOCRIT 28.6 % (37.0-47.0); HEMOGLOBIN 9.1 g/dL (12.0-16.0)
[2019-08-02] MEDS: PROTONIX IV SCH ×3 (06:16→22:34)
[2019-08-02] MEDS: SODIUM CHLORIDE 0.9% INJ SCH (06:16)
[2019-08-02 07:01] LABS: BASO# 0.03 X1000 (0.0-0.2); BASO% 0.3 % (0.0-0.8); EOS# 0.15 X1000 (0.0-0.7); EOS% 1.6 % (0.0-10.0); HEMATOCRIT 27.3 % (37.0-47.0); HEMOGLOBIN 8.4 g/dL (12.0-16.0); IMM GRAN# 0.04 X1000 (0.0-0.04); IMM GRAN% 0.4 % (0.0-0.5); LYMPH# 2.67 X1000 (1.2-3.4); LYMPH% 28.8 % (20.5-51.1); MCH 28.4 PG (27-31); MCHC 30.8 g/dL (33-37); MCV 92.2 FL (81-99); MONO# 0.56 X1000 (0.11-0.59); MPV 10.7 FL (7.4-10.4); NEUT# 5.81 X1000 (1.4-6.5); NEUT% 62.9 % (42.2-75.2); PLT 162 X1000 (130-400); RBC 2.96 XMIL (4.2-5.4); WBC 9.26 X1000 (4.8-10.8)
[2019-08-02 07:34] LABS: AGAP 11; BUN 21 mg/dL (8-22); CALCIUM 9.1 mg/dL (8.8-10.2); CHLORIDE 107 mmol/L (98-107); COSMO 287; CREATININE 0.9 mg/dL (0.5-0.9); ESTIMATED GFR > 60; GLUCOSE 178 mg/dL (70-104); POTASSIUM 3.7 mmol/L (3.5-5.1); SODIUM 140 mmol/L (136-145); TCO2 22 mmol/L (25-35)
[2019-08-02] MEDS: LANTUS INSULIN SUBQ SCH (08:38)
[2019-08-02] MEDS: CARDIZEM CD PO SCH (08:40)
[2019-08-02] MEDS: COSOPT OPHTH SOLN BOTH EYES SCH (08:40)
--- NOTE | 2019-08-02 10:16 | Diag Imaging Result Doc PS360 ---
EXAM: CT ABD/PELVIS W/ORAL CONT ONLY INDICATION: ?colitis GI bleed TECHNIQUE: This exam was performed using automated exposure control, adjustment of mA or kV according to patient size, and/or use of iterative reconstruction technique. COMPARISON: None. FINDINGS: There is minimal linear scarring versus atelectasis at the left lung base. There has been a prior cholecystectomy. The liver, spleen, pancreas, and adrenal glands are unremarkable as imaged with unenhanced CT. There is a small cyst at the upper pole of the left kidney. The kidneys are grossly unremarkable, otherwise. The urinary bladder is largely nondistended and is unremarkable, otherwise. There are a few coarse bulky calcifications associated with the uterine wall suggesting calcified leiomyomata. The reproductive tract is grossly unremarkable as imaged, otherwise. The appendix is normal. There is diverticulosis coli with no evidence of diverticulitis. No colonic wall thickening is identified to indicate colitis. There is no evidence of small bowel wall thickening and no bowel obstruction. The stomach wall appears mildly thickened. This may be, at least in part, due to underdistention. A component of gastritis is possible. Please correlate clinically. No free abdominal gas or free fluid is identified. There is multilevel degenerative arthropathy throughout the visualized spine and at both hips. There is no evidence of acute osseous abnormality. IMPRESSION: 1.Mild gastric wall thickening diffusely, which may be, at least in part, due to underdistention. A component of gastritis is not excluded, however. 2.Uncomplicated diverticulosis coli. 3.Other incidental/nonacute findings detailed above. Electronically signed by Yeyo Flores 08/02/2019 10:14 AM
[2019-08-02] MEDS: NS 1,000 ML IV SCH ×3 (11:36→22:35)
[2019-08-02 13:03] LABS: HEMATOCRIT 26.2 % (37.0-47.0)
--- NOTE | 2019-08-02 14:38 | HISTORY AND PHYSICAL ---
DATE AND TIME: 08/02/2019 at 0100. CHIEF COMPLAINT: Hematochezia. HISTORY OF PRESENT ILLNESS: Ms Parmar is a very pleasant 84-year-old female who has a history of osteoporosis, diabetes mellitus, hypertension and hyperlipidemia. The patient states that yesterday prior to arriving to the ER later in the afternoon that she did have a sudden onset of a crampy type abdominal pain in her left lower quadrant. She stated it felt like she was going to have to go to the bathroom. She states she went to the bathroom and did have a bowel movement that was bloody with bright red blood. She reported it was in the toilet as well as on tissue when she wiped. The patient also did have a total of 3 episodes of bloody stools and then had an additional episode after she arrived to the ER. She reported at home after she had her bloody bowel movements that she did become weak and did have some dizziness as well. Though she denied any headache, she denied any chest pain, shortness of breath or cough. She denies any nausea or vomiting. Other than the abdominal pain just prior to her episodes of bloody stool she denies any other abdominal pain. She is denying any abdominal pain at present. She denies any recent illnesses or taking antibiotics for anything. She denies any fever, body aches or chills. She denies any alcohol use. She also denies any [id number] or prescription use of NSAIDs. Denies any dysuria, urinary frequency or any pain, numbness, tingling or swelling in extremities. Unfortunately, the patient is a poor historian. It was difficult to obtain history of present illness as well as past medical history from her. She did state after she had episodes of hematochezia and did have some weakness and dizziness this is why she did come to the ER for further evaluation. They did document in the ER at [place] that she was hypotensive. They have a blood pressure of 77/52 noted. This was at 1814. She did receive a 1 L normal saline bolus and on next recheck her blood pressure was 121/64. Dr. Kim was notified of the patient as well. She has been transferred to [facility] for further treatment, evaluation of possible lower GI bleed. She was noted upon laboratory results to be a little anemic 10.5 hemoglobin and 33.9 hematocrit. Though she did have some leukocytosis with a white blood cell count of 17,860. This could be reactive though given her reported symptoms as well as looking back on operative reports from an EGD and colonoscopy in 2017 she was noted to have multiple colon polyps and delatorre diverticulosis, was also noted her EGD that she had severe erosive gastritis and duodenitis. We did perform a CT abdomen and pelvis with oral contrast which did show colonic diverticulosis without acute diverticulitis. There was no small bowel obstruction or ascites. There was some diffuse gastric wall thickening suggesting nonspecific inflammatory process. Though there still is concern for a possible diverticular bleed as well given her history. We will continue on antibiotics of Rocephin and Flagyl. Blood cultures have been obtained also. REVIEW OF SYSTEMS: A 14 point review of systems was conducted with the patient and all were negative except for pertinent positives mentioned above HPI. PAST MEDICAL HISTORY: 1. Diabetes mellitus type 2. 2. Hypertension. 3. Hyperlipidemia. 4. Osteoporosis. 5. History of colon polyps, delatorre diverticulosis, internal and external hemorrhoids on colonoscopy findings from 2017. 6. History of severe erosive gastritis, gastric polyps and duodenitis per operative notes from a EGD in 2017. 7. History of hyperparathyroidism. PAST SURGICAL HISTORY: 1. Hysterectomy. 2. History of bladder prolapse with sling placement. 3. History of possible thyroid or parathyroid surgery in 2001 according to previous history and physical notes. 4. Umbilical hernia repair with lysis of adhesions. 5. Cholecystectomy. 6. EGD with findings as above. 7. Colonoscopy with findings as above. SOCIAL HISTORY: The patient is a former smoker. She quit smoking in the . She started when she was a teenager and did smoke less than half a pack per day. She denies any alcohol or illicit drug use. The patient does report that she lives alone. She does not require any ambulatory assistance though she does have family that comes by and checks on her daily. FAMILY HISTORY: The patient states that her mother and father both lived in [place] and that her brother was the one that helped care for them mostly. Due to this she does not know any other past medical history. She reports that her siblings are in good health. ALLERGIES: Patient has no known allergies. HOME MEDICATIONS: 1. Diltiazem 24 hour extended release 360 mg p.o. daily. 2. Dorzolamide timolol eye drops 1 drop both eyes daily. 3. Hyzaar 100/12.5 mg tablet 1 tablet p.o. daily. 4. Lovastatin 20 mg p.o. at bedtime. 5. Metformin 1000 mg p.o. b.i.d. 6. Januvia 100 mg p.o. daily. DIAGNOSTIC DATA: White blood cell count is 17,860, hemoglobin 10.5, hematocrit is 33.9, platelet count 221,000. PT 13.9, INR 1, PTT is less than 20. Sodium 132, potassium 4.6, chloride 100, serum bicarb is 23, BUN 25, creatinine 1.2 with a GFR 43, glucose 402. Hemoglobin A1c 8.1, calcium 10.1, magnesium 1.9. Liver function tests within normal limits. C- reactive protein was 0.8. Urinalysis was obtained via catheter was positive for glucose. It was negative for protein, ketones, blood, nitrites, leukocytes, white blood cells or bacteria. EKG performed in the ER did show a normal sinus rhythm with nonspecific ST abnormality at a rate of 75 with a QTc of 451. CT abdomen, pelvis with oral IV contrast only showed colonic diverticulosis without acute diverticulitis. There was some diffuse gastric wall thickening suggestive of nonspecific inflammatory process. There was no small bowel obstruction or ascites noted. PHYSICAL EXAMINATION: VITAL SIGNS: Temperature 99 degrees, heart rate 94, respirations 18, blood pressure is 130/59 with a MAP of 75, oxygen saturation is 100% on room air. GENERAL: Ms. Parmar is a very pleasant 84-year-old female. She was resting in the inpatient bed. She was in no acute distress. She was awake, alert and able to answer questions appropriately though as previously mentioned, the patient is somewhat of a poor historian. HEENT: Head is atraumatic, normocephalic. Pupils are equal, round, reactive to light, were 3 mm bilaterally and brisk. Sub conjunctivae were pink. Oral mucosa is moist. Oropharynx is clear. NECK: Supple, trachea midline. CARDIOVASCULAR: Patient has S1, S2 noted. She has a regular rate and rhythm. PULMONARY: Patient has symmetrical chest expansion bilaterally. Lung sounds are clear to auscultation in bilateral full panchal. ABDOMEN: Soft, does not appear to be distended, the patient does have a protuberant abdomen noted. She was nontender upon palpation. Bowel sounds are present in all 4 quadrants, were normoactive. EXTREMITIES: No cyanosis or edema noted. Pulse, motor and sensory were intact in all extremities. Radial and pedal pulses were 2+ bilaterally. INTEGUMENTARY: The patient's skin color is normal for her race, is dry and intact. NEUROLOGICAL: Patient is alert and oriented to person, place, time and situation. She is able move all extremities. There were no focal neurological deficits noted at the time. ASSESSMENT/PLAN: 1. Suspected possible lower gastrointestinal bleed. The patient does have a history of having delatorre diverticulosis noted on previous colonoscopy. There is concern this could be related to a diverticular bleed. Her CT abdomen, pelvis did not show any findings of diverticulitis or colitis at this time. She was a little hypotensive upon arrival to the emergency room though after receiving 1 L normal saline bolus she is hemodynamically stable at this time. There is no need for transfusion at this time either. We will periodically repeat her hemoglobin, hematocrit and monitor for the need for this. We will continue with IV fluid hydration, will continue with antibiotics of Rocephin and Flagyl. Blood cultures have been obtained. We placed her Protonix IV q.12 hours. We have placed a consult with Dr. Kim with Gastroenterology. Will await their evaluation and further recommendations. She will be NPO. 2. Hematochezia, this is likely secondary to possible lower gastrointestinal bleed. Will continue with treatment as mentioned above #1. 3. Uncontrolled diabetes mellitus type 2. The patient's glucose levels were elevated upon arrival. She reports that she has been taking her medications and has not missed any doses. She has been placed on Lantus 15 units subcutaneous daily. Will do pattern fingerstick blood sugars, will monitor this closely. We can add on a sliding scale insulin if needed though patient is NPO at this time. 4. History of hypertension. The patient did have a brief period of some hypotension prior to arrival. This could have been secondary to some volume depletion as well as vagal response. The patient was having some bowel movements and she became weak and dizzy. Though since receiving some fluid she has not had any further episodes of hypotension. This time we have continued her Cardizem though we will do q.4 hours vital signs. She will be on continuous cardiac telemetry, will continue to monitor closely. 5. Deep vein thrombosis prophylaxis will be provided with sequential compression devices. The patient has been placed on the medical floor telemetry, she will have vital signs q.4 hours, will do strict intake and output. We will repeat a CBC and BMP in the morning. Further orders, recommendations pending hospital course, diagnostic studies and physician evaluation. Dictated by ALEXANDRU Epstein for Wayne Lucero MD cc: Wayne Lucero MD MTDD
[2019-08-02 16:10] LABS: HEMATOCRIT 25.5 % (37.0-47.0)
[2019-08-02] MEDS: MEVACOR PO SCH (18:10)
[2019-08-02] MEDS ORDERED: ROCEPHIN 1 GM in NS 50 ML IV SCH (20:00)
--- NOTE | 2019-08-02 20:11 | PROGRESS NOTE ---
DATE: 08/02/2019 INTERVAL HISTORY: The patient with no further hematochezia. Patient denies nausea, vomiting, diarrhea or abdominal pain. Essentially asymptomatic at this point. REVIEW OF SYSTEMS: Twelve point review of systems negative except as per interval history. LABS: WBC 9.26, 1st hemoglobin this morning 9.1, repeat 8.4, further repeat 8.0, platelets 162,000. Sodium 140, potassium 3.7, BUN 21, creatinine 0.9, glucose 159 to 286, hemoglobin A1c 8.1. Urinalysis unremarkable aside from glucosuria. IMAGING: CT abdomen and pelvis with mild gastric wall thickening which may be due to under distention but could represent gastritis. No other acute findings. VITALS: T-max 99 degrees, pulse 90, respirations 19, blood pressure 106/89, O2 saturation 100% on room air. PHYSICAL EXAMINATION: General: No acute distress. Vitals as above. HEENT: Normocephalic, atraumatic. Moist mucous membranes. No cervical adenopathy. Cardiovascular: Regular rate and rhythm. No murmurs noted. Pulmonary: Clear to auscultation bilaterally. No wheezing, rales or rhonchi. Abdomen: Soft, nontender, nondistended. Bowel sounds positive. Extremities: Peripheral pulses intact. No clubbing or cyanosis. Neurologic: Cranial nerves grossly intact. No focal deficits identified . Psychiatric: Normal mood and affect. Awake, alert, oriented x3. ASSESSMENT AND PLAN: 1. Hematochezia, likely acute blood loss anemia. Patient presenting with several bouts of hematochezia. Couple in the emergency room but none this morning. Has had some downtrend in hemoglobin from 10.5 to 8 but downtrend appears to be slowing. We will continue monitoring but no need for transfusion at this time. Gastroenterology consulted and recommendations pending. 2. Likely acute kidney injury. Patient with mildly elevated creatinine on admission 1.2. Labs and exam consistent with mild dehydration. Now resolved with intravenous fluids. 3. Hyponatremia likely due to hypovolemia, now resolved with fluid. Monitor. 4. Diabetes, hyperglycemic on admission up to 402 but improved with sliding scale. Continue to monitor. No evidence for diabetic ketoacidosis. 5. Leukocytosis resolved with fluids overnight really. Just placed on Rocephin and Flagyl initially but not really any convincing evidence for infection thus far. Will let the antibiotics go 1 more day but if no infection presents itself will likely stop those in the morning. 6. Glaucoma. Continue home eye drops. 7. Hyperlipidemia. Will restart home statin.
[2019-08-03] MEDS: FLAGYL 500 MG/NS 500 MG/100 ML IVPB IV SCH ×4 (01:33→14:32)
[2019-08-03 07:04] LABS: BASO# 0.03 X1000 (0.0-0.2); BASO% 0.4 % (0.0-0.8); EOS# 0.25 X1000 (0.0-0.7); EOS% 3.6 % (0.0-10.0); HEMATOCRIT 24.7 % (37.0-47.0); HEMOGLOBIN 7.6 g/dL (12.0-16.0); IMM GRAN# 0.02 X1000 (0.0-0.04); IMM GRAN% 0.3 % (0.0-0.5); LYMPH# 1.76 X1000 (1.2-3.4); LYMPH% 25.5 % (20.5-51.1); MCH 28.6 PG (27-31); MCHC 30.8 g/dL (33-37); MCV 92.9 FL (81-99); MONO# 0.43 X1000 (0.11-0.59); MONO% 6.2 % (1.7-9.3); MPV 10.7 FL (7.4-10.4); NEUT# 4.41 X1000 (1.4-6.5); PLT 156 X1000 (130-400); RBC 2.66 XMIL (4.2-5.4)
[2019-08-03 07:33] LABS: AGAP 10; BUN 7 mg/dL (8-22); CALCIUM 8.7 mg/dL (8.8-10.2); CHLORIDE 111 mmol/L (98-107); COSMO 286; CREATININE 0.8 mg/dL (0.5-0.9); ESTIMATED GFR > 60; GLUCOSE 183 mg/dL (70-104); POTASSIUM 3.7 mmol/L (3.5-5.1); SODIUM 142 mmol/L (136-145); TCO2 21 mmol/L (25-35)
[2019-08-03] MEDS: PROTONIX IV SCH ×3 (07:42→20:00)
[2019-08-03] MEDS: COSOPT OPHTH SOLN BOTH EYES SCH (09:17)
[2019-08-03] MEDS: CARDIZEM CD PO SCH (09:17)
[2019-08-03] MEDS: NS 1,000 ML IV SCH ×2 (09:19→11:40)
[2019-08-03] MEDS: SODIUM CHLORIDE 0.9% INJ SCH ×2 (09:20→20:00)
[2019-08-03] MEDS: LANTUS INSULIN SUBQ SCH (09:37)
[2019-08-03 13:42] LABS: HEMATOCRIT 27.5 % (37.0-47.0); HEMOGLOBIN 8.4 g/dL (12.0-16.0)
--- NOTE | 2019-08-03 16:26 | PROGRESS NOTE ---
DATE: 08/03/2019 INTERVAL HISTORY: The patient with 1 bowel movement with very small amount of blood yesterday but no significant clinically evident bleeding since just after admission. No new complaints. No acute events overnight. REVIEW OF SYSTEMS: Twelve point review of systems negative except as per interval history. LABS: WBC 6.9. Initial hemoglobin 7.6, repeat 8.4. Platelets 156,000. Sodium 142, potassium 3.7, chloride 111, bicarb 21, BUN 7, creatinine 0.8, glucose 158 to 256. VITALS: T-max 98.8 degrees, pulse 73, respirations 16, blood pressure 158/67. O2 saturation 100% on room air. PHYSICAL EXAMINATION: General: No acute distress. Vitals: As above. HEENT: Normocephalic, atraumatic. Moist mucous membranes. No cervical adenopathy. Cardiovascular: Regular rate and rhythm. No murmurs noted. Pulmonary: Clear to auscultation bilaterally. No wheezing, rales, or rhonchi. Abdomen: Soft, nontender, nondistended. Bowel sounds positive. Extremities: Peripheral pulses intact. No clubbing or cyanosis. Neurologic: Cranial nerves grossly intact. No focal deficits identified. Psychiatric: Normal mood and affect. Awake, alert, oriented x3. ASSESSMENT AND PLAN: 1. Hematochezia, acute blood-loss anemia. The patient presented with several bouts of hematochezia. Had a couple in the emergency room but no significant evident bleeding since then. Had very small amount of blood in bowel movement yesterday afternoon. Hemoglobin and hematocrit still with downtrend, however. It was 10.5 on admission, down to 7.6 this morning, but repeat this afternoon is back up a little bit 8.4. With increase in this afternoon, we will hold off on transfusion for now. GI recommendations pending. Continue to monitor blood counts and will transfuse if needed. 2. Likely acute kidney injury. Patient with mildly elevated creatinine to 1.2 on admission, now down to 0.8 with fluids. Continue to monitor. 3. Hyponatremia, likely due to volume depletion. Now resolved with IV fluids. 4. Diabetes. Occasional moderate elevations but overall acceptable control. Continue current therapy. 5. Leukocytosis. Present on admission, resolved with fluids overnight. Likely dehydration related. Was placed on Rocephin and Flagyl initially, but CT abdomen and pelvis with no clear evidence of infection. Urinalysis unremarkable. No other sign of infection, so we will discontinue antibiotics and monitor. 6. Glaucoma. Continue home eye drops. 7. Hyperlipidemia. Continue home statin.
--- NOTE | 2019-08-03 18:40 | GASTROENTEROLOGY CONSULTATION ---
DATE: 08/02/2019 REASON FOR CONSULT: GI bleed. HISTORY OF PRESENT ILLNESS: Ms. Parmar is an 84-year-old female with a history of hypertension, hyperlipidemia, and diabetes. The patient mentioned that on Sunday around 4 o'clock, the patient had been to [facility] with complaints of abdominal pain, cramping and mentioning that when she went to the bathroom and had a bowel movement, it was full of blood and then when she was at the [facility], she had two more episodes, but the bleeding was less. Patient was brought to [facility]. The patient has denied any nausea, vomiting, fever, chills, shortness of breath, but mentioned that she was feeling very weak. The patient was recently admitted on 06/11/2019 for hypercalcemia. The patient had an EGD and a colonoscopy done in 2016 and had some colon polyps, diverticulosis, hemorrhoids, gastritis and duodenitis. PAST MEDICAL HISTORY: Hypertension, diabetes type 2, hyperlipidemia, osteoporosis, gastritis, duodenitis, colon polyps, hemorrhoids, history of bladder prolapse status post sling placement. PAST SURGERIES: Hysterectomy, thyroid surgery, umbilical hernia repair, cholecystectomy, bladder sling due to bladder prolapse. ALLERGIES: No known drug allergies. SOCIAL HISTORY: The patient is a . She has four kids. She was a past smoker. Denies any alcohol use. The patient lives alone. FAMILY HISTORY: No significant GI malignancies. HOME MEDICATIONS: Januvia 100 mg daily, metformin 1000 mg b.i.d., lovastatin 20 mg bedtime, diltiazem HCL 360 mg p.o. daily, dorzolamide HCl/timolol ophthalmic solution one drop in both eyes, losartan/hydrochlorothiazide one tablet p.o. daily. REVIEW OF SYSTEMS: As per HPI. Otherwise, 12 point review of system is negative. PHYSICAL EXAMINATION: Vital Signs: Temperature 98.2 degrees, pulse 90, respirations 16, blood pressure 106/89, oxygen saturation 100% on room air. The patient's weight is 163 pounds. BMI is 27.2 kg/m2. General: She is alert, oriented x3, in no acute distress. Answering questions appropriately. HEENT: Pale conjunctivae. No icterus. PERRL. Neck: Supple. Lungs: Clear to auscultation. Cardiovascular: Regular rate and rhythm. Abdomen: Soft, nontender, nondistended. Active bowel sounds heard in all four quadrants. Extremities: No clubbing. No cyanosis. No edema. Pedal pulses 2+ present bilaterally. Neurologic: She is alert, oriented x3. Nonfocal. Cranial nerves II-XII grossly intact. LABORATORY DATA: WBC 9.26, RBC is 2.96, hemoglobin 8.4, hematocrit 27.3, platelet count is 162,000. Sodium 142, potassium 3.7, chloride 111, carbon dioxide 21, anion gap 10, BUN 7, creatinine 0.8, glucose 183, calcium 187. The patient's urinalysis showed greater than 1000 glucose. IMAGING: Abdomen and pelvis CT showed mild gastritis, mild gastric wall thickening diffusely; uncomplicated diverticulosis coli. IMPRESSION AND PLAN: GI bleed Diverticulosis Colon polyps Hemorrhoids Gastritis Duodenitis Hypertension Diabetes type II PLAN: Ms. Parmar is an 84-year-old female with a history of hypertension and diabetes, presented to the hospital with complaints of GI bleed. GI has been consulted for her GI bleed. The patient's hemoglobin on admission was 10.5 and hematocrit 33.9, Today it is 8.0 and hematocrit is 25.5. The patient has denied any further bleeding episodes. She is currently receiving Protonix 40 mg IV twice a day for her diabetes. Patient is on Lantus insulin 15 units subcutaneously daily. We will continue to monitor the patient and follow the plan of care per PCP. The patient has denied any further bleeding. We will continue to monitor patient's hemoglobin and hematocrit. This plan was discussed with Dr. Kim. Thank you for your consult. Please call us for any further questions or concerns. Dictated by ALEXANDRU Castillo for Deven Kim MD cc: Deven Kim MD [facility]
[2019-08-03] MEDS: MEVACOR PO SCH (18:43)
--- NOTE | 2019-08-03 19:56 | GASTROENTEROLOGY PROGRESS NOTE ---
DATE: 08/03/2019 SUBJECTIVE: Ms. Parmar is an 84 year old female, sitting at the side of the bed. She has denied any nausea, vomiting, or abdominal pain. She has denied any further bleeding episodes OBJECTIVE: Vital Signs: Temperature 98.2 degrees, pulse 73, respirations 16, blood pressure 158/67, oxygen saturation 100% on room air. Patient's weight is 163 pounds. BMI is 27.2 kg/m2. General: She is alert, oriented x3, and in no acute distress. HEENT: Pale conjunctivae. No icterus. PERRL. Neck: Is supple. Lungs: Clear to auscultation. Cardiovascular: Regular rate and rhythm. Abdomen: Is soft, nontender, nondistended. Active bowel sounds heard in all 4 quadrants. Extremities: No clubbing, no cyanosis, no edema. Pedal pulses 2+ present bilaterally. Neurologic: She is alert, oriented x3. LABORATORY DATA: WBCs are 6.90. RBC is 2.66. Hemoglobin is 8.4. Hematocrit is 27.5. Platelet count is 156,000. Sodium is 142, potassium is 3.7. Chloride is 111. Carbon dioxide 21, anion gap 10, BUN 7, creatinine is 0.8, glucose is 183, calcium is 8.7. The patient's abdomen and pelvis CT yesterday showed mild gastric wall thickening, uncomplicated diverticulosis coli. IMPRESSION AND PLAN: 1. Gastrointestinal bleed. 2. Diverticulosis. 3. Colon polyps. 4. Hemorrhoids. 5. Gastritis. 6. Duodenitis. 7. Hypertension. 8. Diabetes. PLAN: Ms. Parmar is an 84-year-old female with a history of hypertension and diabetes. Gastroenterology is following her for a gastrointestinal bleed. The patient's hemoglobin today is 8.4 and 27.5. Patient is hemodynamically stable. She has denied any more bleeding episodes. The patient is currently receiving Protonix 40 mg IV twice a day. We plan to do an EGD and colonoscopy as an outpatient. We will follow her up in 2 to 4 weeks after she is discharged. We will continue to monitor the patient and follow the plan of care per PCP. This plan was discussed with Dr. Kim. Please call us for any further questions or concerns. Dictated by ALEXANDRU Castillo for Deven Kim MD cc: Deven Kim MD [facility]
[2019-08-04 06:18] LABS: EOS% 3.2 % (0.0-10.0)
[2019-08-04 07:06] LABS: AGAP 7; BUN 3 mg/dL (8-22); CHLORIDE 111 mmol/L (98-107); COSMO 280; CREATININE 0.7 mg/dL (0.5-0.9); ESTIMATED GFR > 60; GLUCOSE 169 mg/dL (70-104); POTASSIUM 3.6 mmol/L (3.5-5.1); SODIUM 140 mmol/L (136-145); TCO2 22 mmol/L (25-35)
[2019-08-04 07:10] LABS: BASO# 0.05 X1000 (0.0-0.2); BASO% 0.6 % (0.0-0.8); EOS# 0.28 X1000 (0.0-0.7); HEMOGLOBIN 7.9 g/dL (12.0-16.0); IMM GRAN# 0.04 X1000 (0.0-0.04); IMM GRAN% 0.5 % (0.0-0.5); LYMPH# 1.93 X1000 (1.2-3.4); MCH 29.3 PG (27-31); MCHC 31.6 g/dL (33-37); MCV 92.6 FL (81-99); MONO# 0.56 X1000 (0.11-0.59); MONO% 6.4 % (1.7-9.3); MPV 11.1 FL (7.4-10.4); NEUT# 5.92 X1000 (1.4-6.5); NEUT% 67.3 % (42.2-75.2); PLT 170 X1000 (130-400); RDW 13.1 % (11.5-14.5); WBC 8.78 X1000 (4.8-10.8)
[2019-08-04] MEDS: COSOPT OPHTH SOLN BOTH EYES SCH ×2 (07:57→10:18)
[2019-08-04] MEDS: LANTUS INSULIN SUBQ SCH ×2 (07:57→10:18)
[2019-08-04] MEDS: PROTONIX IV SCH ×3 (07:58→20:41)
[2019-08-04] MEDS: SODIUM CHLORIDE 0.9% INJ SCH ×2 (07:58→20:41)
[2019-08-04] MEDS: CARDIZEM CD PO SCH ×2 (07:58→10:17)
--- NOTE | 2019-08-04 13:27 | GASTROENTEROLOGY PROGRESS NOTE ---
DATE: 08/04/2019 SUBJECTIVE: Ms. Parmar is an 84-year-old, -Burm[place] female. She was sitting at the side of the bed, having her breakfast. The patient denied any nausea, vomiting or abdominal pain. She did have 1 bowel movement yesterday and she has denied noticing any blood in her stools. OBJECTIVE: Vital Signs: Temperature 99.1 degrees, pulse 52, respirations 16, blood pressure is 145/60, oxygen saturation 100% on room air. The patient's weight is 163 pounds. BMI is 27.2 kg/m2. General: She is alert, oriented x3, and in no acute distress. HEENT: Pale conjunctivae. No icterus. PERRL. Neck: Supple. Lungs: Clear to auscultation. Cardiovascular: The patient is bradycardic. Abdomen: Soft, nontender. Mildly distended. Active bowel sounds heard in all 4 quadrants. Extremities: No clubbing, no cyanosis, no edema. Pedal pulses 2+ present bilaterally. Neurologic: She is alert, oriented x3. Laboratory Data: WBCs are 8.78, RBCs 2.70, hemoglobin is 7.9, hematocrit is 25.0, platelet count is 170,000. Sodium 140, potassium 3.6, chloride 111, carbon dioxide 22, anion gap 7, BUN 3, creatinine 0.7, glucose 169, calcium is 9.0. The patient's abdominal x-ray yesterday showed that she has mild gastric wall thickening, uncomplicated diverticulosis coli. IMPRESSION AND PLAN 1. Gastrointestinal bleed. 2. Gastritis. 3. Duodenitis. 4. Diabetes Type II 5. History of diverticulosis. 6. History of colon polyps. PLAN: Ms. Parmar is an 84-year-old, -Burm[place] female with a history of hypertension, diabetes. GI has been following her for her GI bleed. The patient's hemoglobin and hematocrit today are 7.9 and 25.0, and patient has currently denied any further bleeding episodes. She is currently on Protonix 40 mg IV twice a day. The patient is on iron and multivitamin 1 tablet daily. She is also receiving Metamucil 1 capsule daily. We will plan to do an EGD and a colonoscopy as an outpatient unless patient is having active bleeding or worsening anemia. This plan was discussed with Dr. Charles. Please call us for any further questions or concerns. Dictated by ALEXANDRU Castillo for Jose Charles MD cc: Jose Charles MD I have seen and examined the patient myself and I agree with the above plan of care. I have discussed the above plan of care with the patient and all questions were answered. Please call us with any further questions. MITULD
--- NOTE | 2019-08-04 16:06 | PROGRESS NOTE ---
DATE: 08/04/2019 SUBJECTIVE: It does not sound like she has had any more major bleeding episodes. OBJECTIVE: Vital Signs: Blood pressure 145/60, heart rate of 52, respiratory rate 16, temperature 99.1 degrees. 100% on room air. Cardiovascular: Regular rate and rhythm. Pulmonary: Bilateral breath sounds clear to auscultation. Gastrointestinal: Abdomen soft, nontender, nondistended. Bowel sounds are positive. White count 8, hemoglobin and hematocrit 7.9 and 25, platelets of 170,000. Basic looked okay. Blood sugar 287. PROBLEM LIST: 1. Gastrointestinal bleed unclear source. As far as an endoscopy, he we have not done anything this admission. Now she has diffuse gastric wall thickening, but as far as I can tell she has not had endoscopy. Hemoglobin and hematocrit has dropped from admission 10 and 33 down to 7.9 and 25, which is a drop from yesterday about the same as it was on the . Note from today shows they are planning to do these tests as an outpatient. I will defer to them. If hemoglobin and hematocrit drops any further, though I think we are going to be obligated to take a peek. 2. Diabetes. Continue current medications and follow. DISPOSITION: Pending clinical status but anticipate hopefully stabilization soon and home. cc: Reji Nguyen MD
[2019-08-04] MEDS: MEVACOR PO SCH (18:32)
[2019-08-04] MEDS: ICAR-C PO SCH (20:41)
[2019-08-04] MEDS: HUMULIN R SUBQ SCH (22:08)
[2019-08-05] MEDS: HUMULIN R SUBQ SCH ×4 (06:22→21:56)
[2019-08-05 06:49] LABS: BASO# 0.02 X1000 (0.0-0.2); BASO% 0.3 % (0.0-0.8); EOS# 0.29 X1000 (0.0-0.7); EOS% 4.1 % (0.0-10.0); HEMATOCRIT 26.2 % (37.0-47.0); HEMOGLOBIN 8.2 g/dL (12.0-16.0); IMM GRAN# 0.02 X1000 (0.0-0.04); IMM GRAN% 0.3 % (0.0-0.5); LYMPH# 1.76 X1000 (1.2-3.4); MCH 28.8 PG (27-31); MCHC 31.3 g/dL (33-37); MCV 91.9 FL (81-99); MONO# 0.54 X1000 (0.11-0.59); MONO% 7.7 % (1.7-9.3); MPV 11.1 FL (7.4-10.4); NEUT% 62.6 % (42.2-75.2); PLT 192 X1000 (130-400); RBC 2.85 XMIL (4.2-5.4); RDW 13.2 % (11.5-14.5); WBC 7.03 X1000 (4.8-10.8)
[2019-08-05 07:07] LABS: AGAP 7; BUN 3 mg/dL (8-22); CALCIUM 9.4 mg/dL (8.8-10.2); CHLORIDE 110 mmol/L (98-107); COSMO 279; CREATININE 0.7 mg/dL (0.5-0.9); ESTIMATED GFR > 60; GLUCOSE 117 mg/dL (70-104); POTASSIUM 3.5 mmol/L (3.5-5.1); SODIUM 141 mmol/L (136-145); TCO2 24 mmol/L (25-35)
[2019-08-05] MEDS: CENTRUM SILVER PO SCH (08:30)
[2019-08-05] MEDS: PROTONIX IV SCH ×2 (08:30→21:59)
[2019-08-05] MEDS: COSOPT OPHTH SOLN BOTH EYES SCH (08:30)
[2019-08-05] MEDS: CARDIZEM CD PO SCH (08:30)
[2019-08-05] MEDS: SODIUM CHLORIDE 0.9% INJ SCH (08:30)
[2019-08-05] MEDS: ICAR-C PO SCH ×2 (08:30→21:59)
[2019-08-05] MEDS: LANTUS INSULIN SUBQ SCH (08:31)
[2019-08-05] MEDS: JANUVIA PO SCH (08:33)
[2019-08-05] MEDS ORDERED: METAMUCIL PO SCH (09:00)
[2019-08-05] MEDS ORDERED: GOLYTELY PO ONE (14:00)
--- NOTE | 2019-08-05 14:55 | GASTROENTEROLOGY PROGRESS NOTE ---
DATE: 08/05/2019 Ms. Parmar is an 84-year-old female, she was sitting at the side of the bed. Patient had her adventism friends come to visit her. The patient has denied any nausea, vomiting, abdominal pain and she also has denied noticing any blood in stools. She did have 1 bowel movement today. OBJECTIVE: Vital Signs: Temperature 98.7 degrees, pulse 74, respirations 16, blood pressure 143/57, oxygen saturation 100% on room air, patient's weight is 163 pounds, BMI is 27.2 kg/m2. General: She is alert, oriented x3 in no acute distress. HEENT: Pale conjunctivae, no icterus. PERRL. Neck: Supple. Lungs: Clear to auscultation. Cardiovascular: Regular rate and rhythm. Abdomen: Soft, mildly distended, nontender. Active bowel sounds heard in all 4 quadrants. Extremities: No clubbing, no cyanosis, no edema. Pedal pulses 2+ present bilaterally. Neurologic: She is alert, oriented x3. LAB: WBC 7.03, RBC is 2.85, hemoglobin is 8.2, hematocrit is 26.2, platelet count is 192,000. Sodium 141, potassium 3.5, chloride 110, carbon dioxide 24, anion gap is 7, BUN is 3, creatinine is 0.7, glucose is 117, calcium is 9.4. IMPRESSION AND PLAN: GI bleed Diabetes Type II Diverticulosis History of colon polyps HTN DM2 PLAN: Ms. Parmar is an 84-year-old female with history of hypertension and diabetes. GI has been following for her GI bleed. The patient is hemoglobin and hematocrit today is 8.2 and 26.2, patient has denied noticing any further bleeding episodes. The patient is currently on Protonix 40 mg IV twice a day. She is on iron twice a day and multivitamin 1 tablet daily, patient is also receiving Metamucil 1 tablet p.o. daily. The plan is to do a colonoscopy tomorrow to find out the cause of her bleeding. We have discussed the risks, benefits and alternatives of the procedure to the patient, patient acknowledges understanding of the plan of care. Further plan of care will be based on the colonoscopy findings. This plan was discussed with Dr. Wilson. Please call us for any further questions or concerns. Dictated by ALEXANDRU Castillo for Kulwinder Wilson MD Physician Attestation I have seen and examined the patient. I have discussed and reviewed the note by Grace HORVATH and agree with findings and plan as documented. Will plan for diagnostic colonoscopy tomorrow given degree of hgb drop and advanced age. MTDD
[2019-08-05] MEDS: MEVACOR PO SCH (18:00)
--- NOTE | 2019-08-05 18:51 | PROGRESS NOTE ---
DATE: 08/05/2019 SUBJECTIVE: Patient has no major complaints. OBJECTIVE: Vital Signs: Blood pressure is 169/64, heart rate 65, respiratory rate of 16, temperature 98.7 degrees, O2 saturation 98% on room air. Cardiovascular: Regular rate and rhythm. Pulmonary: Bilateral breath sounds. Clear to auscultation. Gastrointestinal: Soft, nontender, nondistended. Bowel sounds are positive. LABORATORY DATA: White count 7, hemoglobin and hematocrit 8 and 26, platelets 192,000. Basic was normal. Sugar 247. PROBLEM LIST: Gastrointestinal bleed, unclear. Hemoglobin and hematocrit is stable today. Upper gastrointestinal bleed unclear, but I guess now we are planning to do an endoscopy. I do not know why we are doing a colonoscopy but not an EGD. I do not know. Any way, we will observe and see how she does. Her hemoglobin and hematocrit is stabilized, so the initial plan of doing it as an outpatient is certainly possible. If there is no overt bleeding, I think possibly she could go home tomorrow at the discretion of GI. cc: Reji Nguyen MD
[2019-08-06] MEDS ORDERED: NS 1,000 ML IV ONE
[2019-08-06] MEDS ORDERED: DIPRIVAN 1% ONE (06:32)
[2019-08-06] MEDS ORDERED: ROBINUL ONE ×2 (06:36→08:24)
[2019-08-06 07:03] LABS: HEMATOCRIT 24.8 % (37.0-47.0); HEMOGLOBIN 7.8 g/dL (12.0-16.0); MCH 29.2 PG (27-31); MCHC 31.5 g/dL (33-37); MCV 92.9 FL (81-99); MPV 10.8 FL (7.4-10.4); RBC 2.67 XMIL (4.2-5.4); RDW 13.6 % (11.5-14.5); WBC 7.86 X1000 (4.8-10.8)
[2019-08-06 07:27] LABS: AGAP 9; BUN 2 mg/dL (8-22); CALCIUM 8.9 mg/dL (8.8-10.2); CHLORIDE 108 mmol/L (98-107); COSMO 284; CREATININE 0.7 mg/dL (0.5-0.9); ESTIMATED GFR > 60; GLUCOSE 174 mg/dL (70-104); POTASSIUM 3.9 mmol/L (3.5-5.1); SODIUM 142 mmol/L (136-145); TCO2 25 mmol/L (25-35)
[2019-08-06] MEDS ORDERED: ZOFRAN ONE (08:30)
--- NOTE | 2019-08-06 08:39 | ENDOSCOPY OPERATIVE NOTE ---
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 PROCEDURE PERFORMED: Colonoscopy, diagnostic MEDICATIONS: Per Anesthesia PREP TYPE: GoLytely
[2019-08-06] MEDS: ICAR-C PO SCH (09:05)
[2019-08-06] MEDS: SODIUM CHLORIDE 0.9% INJ SCH (09:05)
[2019-08-06] MEDS: PROTONIX IV SCH (09:05)
[2019-08-06] MEDS: JANUVIA PO SCH (09:05)
[2019-08-06] MEDS: CENTRUM SILVER PO SCH (09:05)
[2019-08-06] MEDS: CARDIZEM CD PO SCH (09:05)
[2019-08-06] MEDS: LANTUS INSULIN SUBQ SCH (09:16)
[2019-08-06] MEDS: COSOPT OPHTH SOLN BOTH EYES SCH (09:16)
[2019-08-06] MEDS ORDERED: METAMUCIL PO SCH (10:00)
[2019-08-06] MEDS: HUMULIN R SUBQ SCH ×2 (11:13→16:18)
[2019-08-06 12:45] LABS: HEMATOCRIT 27.4 % (37.0-47.0); HEMOGLOBIN 8.7 g/dL (12.0-16.0)
[2019-08-06 15:24] VITALS: BP 129/43
--- NOTE | 2019-08-06 19:45 | DISCHARGE SUMMARY ---
ADMISSION DATE: 08/01/2019 DISCHARGE DATE: 08/06/2019 DISCHARGE DIAGNOSES: 1. Acute GI bleed, lower, presumably diverticular. 2. Hypertension. 3. Anemia associated with acute blood loss. CONSULTATIONS: Dr. Kim and Dr. Wilson, Gastroenterology. PROCEDURES: Colonoscopy on August 06 which showed diverticulosis, medium-sized external hemorrhoids, and two 3 to 5 mm polyps in the ascending colon. HISTORY/HOSPITAL COURSE: Briefly, this is an 84-year-old female who presented with hematochezia and left lower quadrant pain. She was not hypotensive. Her hemoglobin and hematocrit were initially [address] scan was obtained. She had mild gastric wall thickening, diverticulosis, so we will continue to monitor. Gastroenterology was consulted. Her hemoglobin and hematocrit did drop to a santos of 7.6 and 24, and she was never transfused. She kind of fluctuated around that level. Dr. Wilson evaluated the patient, and she did end up getting a colonoscopy on the , which again did not show any active bleeding. Her hemoglobin and hematocrit this morning were 7.8 and 24.8, but then repeat at noon were 8.7 and 27. Platelets were okay. Coags were okay. The patient is not on chronic anticoagulation. She was felt stable for discharge. Based on the CT findings of gastritis, I would think at some point, an upper endoscopy would be warranted, but I will defer that to gastroenterology, and again her hemoglobin and hematocrit are stable. DISCHARGE MEDICATIONS: Cardizem 360 daily, dorzolamide/timolol 1 drop both eyes daily, metformin 1 gram b.i.d., losartan 100/12.5 daily, Januvia 100 daily, lovastatin 20 daily, MiraLAX 17 daily. Also recommended to continue oral iron. Her iron was never checked here, though. FOLLOWUP: I would recommend followup for her iron (Dr. Weiss will need to follow up with her iron levels and decide about long-term iron,, and follow up with Gastroenterology in 4 to 6 weeks. DISCHARGE CONDITION: Stable. TIME SPENT: Thirty-two minutes. cc: MD Deven Hill MD Bernice Swain, MD
[2019-08-07] MEDS ORDERED: PRILOSEC PO SCH (07:00)
== END 2019-08-06 17:31 | disposition home or self-care (01) | DRG 378 ==
LOC: 4N 18:30 → P.ED 18:30 → SUATTDRO 22:14
PROVIDERS: ATTEND Internal Medicine